=== PATIENT | male | born 1990 ===

== ENCOUNTER 2016-05-27 20:48 | Emergency (ER) | payer MEDICAID ==
[2016-05-27 20:49] VITALS: BMI 20.5
[2016-05-27 21:37] VITALS: TEMP 97.3; O2SAT 99
[2016-05-27] MEDS ORDERED: Lidocaine 1% Inj (20ml) IJ ONE (22:06)
[2016-05-27] MEDS ORDERED: Lidocaine 1% Inj (20ml) ONE (22:07)
--- NOTE | 2016-05-27 22:30 | ED PDOC ---
HPI: Wound Care - HPI Time Seen by Provider: 05/27/16 21:05 Chief Complaint (Nursing): Substance Abuse Chief Complaint (Provider): laceration History Per: Patient History Of Present Illness: 26 y/o male h/o substance abuse brought in by EMS for eval of finger laceration and possible alcohol intoxication. Patient states he was frustrated and had a butter knife in his hand and went to bang it down on table but it sliced his right hand 5th digit. Denies numbness/weakness upper extremity . Denies suicidal/homicidal ideations. Past Medical History Reviewed: Historical Data, Nursing Documentation, Vital Signs Vital Signs: Last Vital Signs Temp 97.3 F L 05/27/16 20:57 Pulse 122 H 05/27/16 20:57 Resp 18 05/27/16 20:57 BP 170/95 H 05/27/16 20:57 Pulse Ox 99 05/27/16 20:57 - Medical History PMH: Anxiety, Depression Denies: Diabetes, Hepatitis, HIV, HTN, Chronic Kidney Disease, Seizures, Sexually Transmitted Disease - Family History Family History: States: Unknown Family Hx - Immunization History Hx Tetanus Toxoid Vaccination: No Hx Influenza Vaccination: No Hx Pneumococcal Vaccination: No - Allergies Allergies/Adverse Reactions: Allergies Allergy/AdvReac Type Severity Reaction Status Date / Time ibuprofen Allergy SWELLING Verified 03/06/16 05:10 Review of Systems ROS Statement: Except As Marked, All Systems Reviewed And Found Negative Musculoskeletal: Positive for: Hand Pain (right hand 5th digit laceration) Physical Exam - Reviewed Nursing Documentation Reviewed: Yes Vital Signs Reviewed: Yes - Physical Exam Appears: Positive for: Well, Non-toxic, No Acute Distress Head Exam: Positive for: ATRAUMATIC, NORMAL INSPECTION, NORMOCEPHALIC Skin: Positive for: Normal Color Cardiovascular/Chest: Positive for: Regular Rate, Rhythm Respiratory: Positive for: Normal Breath Sounds Pulses-Radial (L): 2+ Pulses-Radial (R): 2+ Extremity: Positive for: Other (2cm linear laceration volar right hand 5th digit over PIP. Patient unable to flex at DIP. No obvious tendon injury/ exposure noted. Distal neurovascular intact and equal b/l UE) Neurologic/Psych: Positive for: Alert, Oriented, Gait (steady) - ECG O2 Sat by Pulse Oximetry: 99 - Progress ED Course And Treament: Patient AAOx3, ambulating steady gait since arrival to ED. Procedure: Wound Repair - Time Performed Time Performed: 22:15 - Time Out Time Out: Side verified, Site verified, Patient ID confirmed, Sterile procedures obs. - Procedure Procedure: Wound Repair: right 5th digit laceration - Consent Obtained Consent obtained: Verbal - Performed by Performed by: Mid-level Provider - Indications Indication(s):: Laceration - Location Finger:: Right, Little Shape:: Linear Dimensions Length cm: 2 Dimensions width cm: 0.2cm Depth:: Epidermis - Anesthetic Technique Anesthetic Technique: Topical Local/Regional Anesthetic:: Lidocaine 1% - Debris Debris:: None - Irrigated Irrigated with ml of normal saline: 200mL - Complexity Complexity:: Simple (one layer) - Wound repair method Sutures:: # (3), Size (4'0), Type (nylon), Technique (interrupted) - Muscle repiar layer closed with Muscle repair layer closed with:: Abx ointment applied, Dressing applied ( finger splint applied), Tetanus ordered - Patient tolerated procedure Patient Tolerated Procedure:: Well Medical Decision Making Medical Decision Making: Patient educated on wound care, suture removal 7-10 days. Advised follow up hand specialist for eval of possible tendon injury. Return to ED for worsening/concerning symptoms. Disposition - Clinical Impression Clinical Impression: Finger laceration involving tendon, Substance abuse - Patient ED Disposition Is Patient to be Admitted: No Counseled Patient/Family Regarding: Studies Performed, Diagnosis, Need For Followup - Disposition Referrals: Bruce Ventura MD [Medical Doctor] - Disposition: Routine/Home Disposition Time: 22:50 Condition: STABLE Additional Instructions: Call hand specialist tomorrow to schedule follow up appointment. Suture removal 7-10 days. Return to ED sooner for fever, increased pain/redness/swelling at site, discharge from site, or other concerning symptoms. Instructions: Care For Your Stitches (ED), Laceration (ED), Polysubstance Abuse (ED)
[2016-05-27] MEDS ORDERED: Tetanus/Diphtheria Toxoids 0.5 ml Syringe IM ONE (22:33)
[2016-05-27] MEDS ORDERED: TDAP Vaccine 0.5 mL Syr IM ONE (22:37)
[2016-05-27 22:56] VITALS: BP 130/80; PULSE 78; RESP 20
== END 2016-05-27 23:15 | disposition home or self-care (01) ==
LOC: H.ER 20:48
DX: S61.219A Laceration without foreign body of unspecified finger without damage to nail, initial encounter (principal); W26.0XXA Contact with knife, initial encounter; Y92.89 Other specified places as the place of occurrence of the external cause; F10.10 Alcohol abuse, uncomplicated

== ENCOUNTER 2016-06-07 22:07 | Emergency (ER) | payer MEDICAID ==
[2016-06-07 22:07] VITALS: BMI 20.5
[2016-06-07 22:11] VITALS: BP 130/80; RESP 16; TEMP 98.2; O2SAT 99
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
[2016-06-07 23:14] LABS: BASO # 0.1 K/uL (0.0-0.2); BASO % 0.6 % (0.0-2.0); EOS # 0.1 K/uL (0.0-0.7); HEMATOCRIT 46.3 % (35.0-51.0); LYMPH # 2.1 K/uL (1.0-4.3); LYMPH % 17.9 % (20.0-40.0); MEAN CELL VOLUME 92.1 fl (80.0-94.0); MEAN CORPUSCULAR HEMOGLOBIN 30.6 pg (27.0-31.0); MEAN CORPUSCULAR HGB CONC 33.2 g/dL (33.0-37.0); MEAN PLATELET VOLUME 9.3 fl (7.2-11.7); MONO # 0.9 K/uL (0.0-0.8); MONO % 7.4 % (0.0-10.0); NEUT # 8.7 K/uL (1.8-7.0); NEUT % 73.1 % (50.0-75.0); NRBC % 0.1 % (0.0-0.0); RED CELL DISTRIBUTION WIDTH 15.4 % (11.5-14.5); WHITE BLOOD COUNT 11.9 K/uL (4.8-10.8)
[2016-06-08 00:13] LABS: ALB/GLOB RATIO 1.3 (1.0-2.1); ALKALINE PHOSPHATASE 66 U/L (38-126); ALT/SGPT 22 U/L (21-72); AST/SGOT 35 U/L (17-59); BILIRUBIN,TOTAL 0.5 mg/dl (0.2-1.3); BLOOD UREA NITROGEN 13 mg/dl (9-20); CALCIUM 8.8 mg/dL (8.4-10.2); CARBON DIOXIDE 22 mmol/L (22-30); CHLORIDE 108 mmol/L (98-107); GFR AFRICAN-AMERICAN > 60; GLUCOSE,RANDOM 119 mg/dL (75-110); SODIUM 147 mmol/l (132-148); TOTAL PROTEIN 7.4 G/DL (6.3-8.2)
[2016-06-08 04:10] VITALS: PULSE 92
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
== END 2016-06-08 04:10 | disposition home or self-care (01) ==
LOC: H.ER 22:07
DX: F19.10 Other psychoactive substance abuse, uncomplicated (principal); Z48.02 Encounter for removal of sutures

== ENCOUNTER 2016-06-09 17:08 | Emergency (ER) | payer MEDICAID ==
[2016-06-09 17:08] VITALS: BMI 20.5
[2016-06-09 17:17] VITALS: BP 153/94; PULSE 126; RESP 18; TEMP 99.2; O2SAT 97
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
== END 2016-06-09 19:35 | disposition home or self-care (01) ==
LOC: H.ER 17:08
DX: S00.81XA Abrasion of other part of head, initial encounter (principal); Y04.0XXA Assault by unarmed brawl or fight, initial encounter; Y92.89 Other specified places as the place of occurrence of the external cause

== ENCOUNTER 2016-06-16 16:53 | Emergency (ER) | payer MEDICAID ==
[2016-06-16 16:53] VITALS: BMI 20.5
[2016-06-16 17:00] VITALS: TEMP 98.6
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
[2016-06-16 18:58] VITALS: BP 148/82; PULSE 110; RESP 16
[2016-06-17 07:20] VITALS: O2SAT 99
== END 2016-06-16 19:01 | disposition home or self-care (01) ==
LOC: H.ER 16:53
DX: F19.10 Other psychoactive substance abuse, uncomplicated (principal); F12.10 Cannabis abuse, uncomplicated; F41.9 Anxiety disorder, unspecified; F17.210 Nicotine dependence, cigarettes, uncomplicated

== ENCOUNTER 2016-06-25 13:40 | Emergency (ER) | payer MEDICAID ==
[2016-06-25 13:41] VITALS: BMI 20.5
[2016-06-25 13:44] VITALS: BP 157/98; PULSE 91; RESP 18; TEMP 98.7; O2SAT 100
[2016-06-25 14:40] LABS: BASO # 0.1 K/uL (0.0-0.2); BASO % 0.8 % (0.0-2.0); EOS # 0.3 K/uL (0.0-0.7); EOS % 3.6 % (0.0-4.0); HEMATOCRIT 43.2 % (35.0-51.0); LYMPH # 1.9 K/uL (1.0-4.3); LYMPH % 21.4 % (20.0-40.0); MEAN CELL VOLUME 93.9 fl (80.0-94.0); MEAN CORPUSCULAR HEMOGLOBIN 31.6 pg (27.0-31.0); MEAN CORPUSCULAR HGB CONC 33.6 g/dL (33.0-37.0); MEAN PLATELET VOLUME 9.1 fl (7.2-11.7); MONO # 0.9 K/uL (0.0-0.8); MONO % 9.7 % (0.0-10.0); NEUT # 5.8 K/uL (1.8-7.0); NEUT % 64.5 % (50.0-75.0); NRBC % 0.1 % (0.0-0.0); RED CELL DISTRIBUTION WIDTH 15.5 % (11.5-14.5)
[2016-06-25 14:46] LABS: ALB/GLOB RATIO 1.3 (1.0-2.1); ALKALINE PHOSPHATASE 69 U/L (38-126); ALT/SGPT 33 U/L (21-72); AST/SGOT 45 U/L (17-59); BILIRUBIN,TOTAL 0.4 mg/dl (0.2-1.3); BLOOD UREA NITROGEN 10 mg/dl (9-20); CALCIUM 8.5 mg/dL (8.4-10.2); CARBON DIOXIDE 25 mmol/L (22-30); CHLORIDE 104 mmol/L (98-107); GFR AFRICAN-AMERICAN > 60; GLUCOSE,RANDOM 89 mg/dL (75-110); POTASSIUM 3.7 MMOL/L (3.6-5.0); SODIUM 141 mmol/l (132-148); TOTAL PROTEIN 6.8 G/DL (6.3-8.2)
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
== END 2016-06-25 15:29 | disposition home or self-care (01) ==
LOC: H.ER 13:40
DX: F19.10 Other psychoactive substance abuse, uncomplicated (principal); F41.9 Anxiety disorder, unspecified; F17.210 Nicotine dependence, cigarettes, uncomplicated

== ENCOUNTER 2016-09-06 15:58 | Emergency (ER) | payer MEDICAID ==
[2016-09-06 15:59] VITALS: BMI 20.5
[2016-09-06 16:06] VITALS: BP 152/65; PULSE 87; RESP 16; TEMP 98.1; O2SAT 99
--- NOTE | 2016-09-06 16:42 | ED PDOC ---
Upper Extremity Pain/Injury Time Seen by Provider: 09/06/16 16:06 Chief Complaint (Nursing): Finger,Hand,&Wrist Chief Complaint (Provider): Hand pain, lt shoulder pain History Per: Patient History/Exam Limitations: no limitations Onset/Duration Of Symptoms: Days Current Symptoms Are (Timing): Still Present Quality: "Pain" Exacerbating Factor(s): Strenuous Use Of Affected Area Additional History Per: Patient Additional Complaint(s): The patient is a 26yo male, presents to the ED for evaluation of a "bump" on his right 5th digit as well as pain to his left shoulder due to a fall. Pt was seen in this facility a couple months ago for a laceration on his right 5th digit and states he recently noticed a tender bump on the laceration site - states he has decreased ROM due to the bump. Pt additionally reports he fell around 3weeks ago on his left shoulder causing pain. Denies any numbness or tingling and offers no additional medical complaints. Past Medical History Reviewed: Historical Data, Nursing Documentation, Vital Signs Vital Signs: Last Vital Signs Temp 98.1 F 09/06/16 16:02 Pulse 87 09/06/16 16:02 Resp 16 09/06/16 16:02 BP 152/65 H 09/06/16 16:02 Pulse Ox 99 09/06/16 16:02 - Medical History PMH: Anxiety, Depression Denies: Diabetes, Hepatitis, HIV, HTN, Chronic Kidney Disease, Seizures, Sexually Transmitted Disease - Family History Family History: States: Unknown Family Hx - Living Arrangements Living Arrangements: With Family - Social History Current smoker - smoking cessation education provided: Yes - Immunization History Hx Tetanus Toxoid Vaccination: No Hx Influenza Vaccination: No Hx Pneumococcal Vaccination: No - Allergies Allergies/Adverse Reactions: Allergies Allergy/AdvReac Type Severity Reaction Status Date / Time ibuprofen Allergy SWELLING Verified 09/06/16 16:00 Review of Systems ROS Statement: Except As Marked, All Systems Reviewed And Found Negative Musculoskeletal: Positive for: Shoulder Pain (lt), Hand Pain (rt hand pain) Neurological: Negative for: Weakness, Numbness Physical Exam - Reviewed Nursing Documentation Reviewed: Yes Vital Signs Reviewed: Yes - Physical Exam Appears: Positive for: Well, Non-toxic, No Acute Distress Head Exam: Positive for: ATRAUMATIC, NORMAL INSPECTION, NORMOCEPHALIC Skin: Positive for: Normal Color, Warm, DRY Eye Exam: Positive for: Normal appearance Neck: Positive for: Normal, Supple Cardiovascular/Chest: Positive for: Regular Rate, Rhythm Respiratory: Positive for: Normal Breath Sounds. Negative for: Respiratory Distress Extremity: Positive for: Other (hard palapble area of right anterior 5th digit above the PIP, slight decreased ROM due to pain. No bony tenderness, 5/5 motor strength.). Negative for: Deformity Neurologic/Psych: Positive for: Alert, Oriented - ECG O2 Sat by Pulse Oximetry: 99 (RA) Pulse Ox Interpretation: Normal Medical Decision Making Medical Decision Making: Time: 1620 Impression: Right hand pain Plan: -- XR right 5th digit Time: 1730 XR IMPRESSION: Unremarkable right 5th digit radiographs. Scribe Attestation: Documented by Nina Miller acting as a scribe for SURI Coates Provider Attestation: All medical record entries made by the Scribe were at my direction and personally dictated by me. I have reviewed the chart and agree that the record accurately reflects my personal performance of the history, physical exam, medical decision making, and the department course for this patient. I have also personally directed, reviewed, and agree with the discharge instructions and disposition. Disposition - Clinical Impression Clinical Impression: Scar tissue, Shoulder injury - Patient ED Disposition Is Patient to be Admitted: No Counseled Patient/Family Regarding: Diagnosis, Need For Followup - Disposition Referrals: Bruce Ventura MD [Medical Doctor] - Disposition: Routine/Home Disposition Time: 17:58 Condition: GOOD Additional Instructions: Motrin as needed for pain. Follow-up with orthopedic. Instructions: Arthralgia (ED)
--- NOTE | 2016-09-06 17:27 | RAD ---
PROCEDURE: Right small finger radiographs. HISTORY: bump, bone spur? COMPARISON: Right hand radiographs performed 06/07/16 TECHNIQUE: AP radiograph of the right hand, as well as spot oblique and lateral images of small finger were obtained. FINDINGS: RIGHT SMALL FINGER: Unremarkable right 5th digit, without acute displaced fracture identified. Remainder of the right hand (as seen on the AP view) grossly unremarkable. JOINTS: No dislocation. SOFT TISSUES: Unremarkable. No evidence of radiopaque foreign body. OTHER FINDINGS: None. IMPRESSION: Unremarkable right 5th digit radiographs as above.
== END 2016-09-06 18:06 | disposition home or self-care (01) ==
LOC: H.ER 15:58
DX: M25.512 Pain in left shoulder (principal); M79.89 Other specified soft tissue disorders; F41.9 Anxiety disorder, unspecified